=== PATIENT | female | born 1990 | race Caucasian/White ===

== ENCOUNTER 2018-10-13 19:25 | Emergency (ER) | payer MEDICAID ==
[~2018-10-13] VITALS: Ht 167.6 cm; Wt 63.5 kg
[2018-10-13] MEDS ORDERED: BUPROPION XL150 MG ORAL (19:48)
[2018-10-13 20:20] VITALS: BP 109/74
--- NOTE | 2018-10-13 20:22 | NUR ---
ED Nurse Note: pt walked in c/o pain on and bleeding on the back of the head. pt stated she fell from a stair happend 18:30 today. denies loc, denie vomiting and nausea
[2018-10-13] MEDS ORDERED: Bacitracin Oint UD TOPIC ONE ×2 (20:30→21:07)
[2018-10-13] MEDS ORDERED: HYDROcodone/Acetamin 5/325 tab ORAL ONE (20:30)
--- NOTE | 2018-10-13 20:52 | Emergency Room Report ---
History of Present Illness General Chief Complaint: Multiple Trauma/Fall Present Illness HPI 28-year-old female patient presents ER status post fall and head injury approximately less than 1 hour prior to the arrival to the ER. Reports that she was walking downstairs when she excellently tripped and fell and twisted in the air landing on the back of her head. Reports bleeding from the back of her head. Reports she does not know if she lost consciousness. Denies vomiting or vision changes. Also complaining of back and knee pain. Reports able to ambulate independently without difficulty. Denies other aggravating or relieving factors. Denies bowel or bladder incontinence. Denies pain radiating down the legs. Reports left knee tenderness to palpation. Denies syncope or dizziness prior to fall. Patient denies . Allergies: Coded Allergies: No Known Allergies (Unverified , 10/13/18) Patient History Past Medical History: see triage record Last Menstrual Period: september Now: No Reviewed Nursing Documentation: PMH: Agreed; PSxH: Agreed Nursing Documentation-PMH History Of Psychiatric Problem: Yes - depression Review of Systems All Other Systems: negative except mentioned in HPI Physical Exam Vital Signs Date Time Temp Pulse Resp B/P (MAP) Pulse Ox O2 Delivery O2 Flow Rate FiO2 10/13/18 19:44 97.9 100 16 109/74 100 Room Air Sp02 EP Interpretation: reviewed, normal General Appearance: well appearing, no apparent distress, alert, GCS 15, non- toxic Head: normocephalic, atraumatic, other - Abrasion on posterior scalp, no laceration, parietal scalp swelling, 1 cm circular, no active bleeding, negative monte sign, negative raccoon eyes, no hemotympanum bilaterally Eyes: bilateral eye normal inspection, bilateral eye PERRL, bilateral eye EOMI ENT: hearing grossly normal, normal pharynx, no angioedema, normal voice, TMs + canals normal, uvula midline, moist mucus membranes Neck: full range of motion, no bony tend Respiratory: lungs clear, normal breath sounds, no rhonchi, no respiratory distress, no accessory muscle use, no wheezing, speaking full sentences Cardiovascular #1: regular rate, rhythm, no edema Gastrointestinal: non tender, soft, no mass, non-distended, no guarding, no rebound Musculoskeletal: back normal, digits/nails normal, gait/station normal, normal range of motion, other - No laxity with varus or valgus stress of the knee, no bony step-off, No deformity, tender - Anterior right knee Neurologic: alert, oriented x3, responsive, master carpenter III-XII nml as tested, motor strength/tone normal, SLR negative, sensory intact, cerebellar normal, normal gait, speech normal Skin: abrasions - Left knee, no laceration, no active bleeding Medical Decision Making PA Attestation Dr. Layne is my supervising Physician whom patient management has been discussed with. Diagnostic Impression: Primary Impression: Fall Additional Impressions: Head injury Abrasion Back pain Knee contusion Scalp hematoma ER Course Pt presents to ED c/o mechanical trip and fall down stairs, head trauma, back pain, knee pain. Bleeding noted on posterior scalp DDX considered but are not limited to laceration, abrasion, contusion, cellulitis, ICH, skull fracture. Cranial nerves intact as tested, no focal neuro deficits. VITAL SIGNS are WNL, patient is afebrile ED INTERVENTIONS: No laceration on posterior scalp, small abrasion noted. Does not require ginger. Scalp hematoma noted, provide patient with bacitracin and compression dressing. Advised to apply ice to help with swelling symptoms. Take Motrin for pain. Abrasion noted on left knee, wound cleaned and dressed, bacitracin applied. Keep clean and dry. X-ray of the lumbar spine negative for acute disease per the preliminary reading. X-ray of the left knee negative for acute disease per the preliminary reading. Patient declined Matt wrap and crutches. Patient instructed on RICE method: rest, ice, compression, elevation. Patient instructed on rest, ice and heat. Patient instructed to be WBAT Contact information for orthopedic urgent care provided, follow-up with urgent care if unable to followup with primary care provider and get referral to graves registration specialist. Followup with primary care provider. Discuss referral to ortho/pain management/ PT as needed. Discuss further imaging with MRI/CT as needed. CT head negative for acute disease Discuss results with the patient. Provided patient with copy of results. Instructed patient to followup with PCP and discuss results of report with patient, discuss need for further treatment and referral. Monitor for signs of concussion. Follow-up with primary care provider for further evaluation and treatment. ER precautions given. DISCHARGE: At this time pt is stable for d/c to home. Patient resting comfortably, in no acute distress, nontoxic appearing, talking without difficulty. Will provide with patient care instructions and any necessary prescriptions. Patient to take medication as instructed. Care plan and follow-up instructions provided. Patient questions asked and answered. Patient reports understanding and agreement to treatment plan. Patient instructed to follow-up with primary care provider. ER precautions given. Patient instructed to return to ER immediately for any new or worsening of symptoms. - Please note that this Emergency Department Report was dictated using [employer] worker technology software, occasionally this can lead to erroneous entry secondary to interpretation by the dictation equipment. Other X-Ray Diagnostic Results Other X-Ray Diagnostic Results #1: X-Ray ordered: Lumbar spine # of Views/Limited Vs Complete: 3 View Indication: Pain EP Interpretation: Yes PA Xray: Interpretation reviewed, by supervising MD, and agrees with findings. Interpretation: no dislocation, no soft tissue swelling, no fractures Impression: No acute disease PA Scribe Text Fei Rick PA-C Other X-Ray Diagnostic Results #2: X-Ray ordered: Left knee # of Views/Limited Vs Complete: 3 View Indication: Pain EP Interpretation: Yes PA Xray: Interpretation reviewed, by supervising MD, and agrees with findings. Interpretation: no dislocation, no soft tissue swelling, no fractures Impression: No acute disease PA Scribe Text Fei Rick PA-C CT/MRI/US Diagnostic Results CT/MRI/US Diagnostic Results : Imaging Test Ordered: CT head Impression IMPRESSION: No intracranial hemorrhage or skull fracture Last Vital Signs Date Time Temp Pulse Resp B/P (MAP) Pulse Ox O2 Delivery O2 Flow Rate FiO2 10/13/18 20:20 100 16 Room Air 10/13/18 20:20 97.9 109/74 100 Status: improved Disposition: HOME, SELF-CARE Condition: Stable Scripts Ibuprofen* (MOTRIN*) 600 Mg Tablet 600 MG ORAL Q8H PRN for For Pain, #30 TAB 0 Refills Prov: Sung Rick 10/13/18 Bacitracin/Polymyxin B Sulfate (BACITRACIN-POLYMYXIN OINTMENT) 28.35 Gm Oint...g. 1 APPLIC TP BID, #28 GM Prov: Sung Rick 10/13/18 Patient Instructions: Abrasion, [id number], Back Pain, Adult, [id number], Head Injury, Adult, Ollm-[id number], Hematoma, [id number]-ts-Rlyv, Knee Pain, Easy-to- Read Additional Instructions: Patient instructed to follow up with primary care provider and discuss further referral to orthopedics/physical therapy/pain management as needed. If unable to followup with PCP, followup with orthopedic urgent care in 5-7 days , call to schedule appointment. Patient instructed on RICE method: rest, ice, compression, elevation. Patient instructed to WBAT. Keep wounds clean and dry. Take medications as directed. Patient questions asked and answered. ER precautions given, patient instructed to return to ER immediately for any new or worsening of symptoms. [facility] [address] [facility] [address] [facility], [id number] [email or web address] Follow up with primary care physician in 1 - 2 days. If you experience loss of consciousness, vision loss or intractable vomiting, return to ED immediately. Avoid screen time. Drink plenty of fluids. Avoid alcohol/drug use, rest. Sung Rick Oct 13, 2018 20:52
--- NOTE | 2018-10-13 21:13 | Diagnostic Imaging Report ---
EXAM: CT Head Without Intravenous Contrast CLINICAL HISTORY: PAIN TECHNIQUE: Axial computed tomography images of the head/brain without intravenous contrast. CTDI is 71.53 mGy and DLP is 1383 mGy-cm. One or more of the following dose reduction techniques were used: automated exposure control, adjustment of the mA and/or kV according to patient size, use of iterative reconstruction technique. COMPARISON: No relevant prior studies available. FINDINGS: Brain: Unremarkable. No hemorrhage. No significant white matter disease. No edema. Ventricles: Unremarkable. No ventriculomegaly. Bones/joints: Unremarkable. No acute fracture. Soft tissues: Mild left occipital/parietal scalp swelling. Sinuses: Unremarkable as visualized. No acute sinusitis. Mastoid air cells: Unremarkable as visualized. No mastoid effusion. IMPRESSION: No intracranial hemorrhage or skull fracture
[2018-10-13] MEDS ORDERED: BACITRACIN-P28.35 GM TP (21:25)
[2018-10-13] MEDS ORDERED: IBUPROFEN600 MG ORAL (21:25)
[2018-10-13 21:32] VITALS: BP 111/79
--- NOTE | 2018-10-13 21:32 | NUR ---
ER DISCHARGE NOTE: Patient is cleared to be discharged per ERMD, pt is aox4, on room air, with stable vital signs. pt was given dc instructions, pt was able to verbalize understanding, pt id band removed. pt is able to ambulate with steady gait. pt took all belongings.
--- NOTE | 2018-10-13 21:33 | Diagnostic Imaging Report ---
EXAM: XR Left Knee, 3 views CLINICAL HISTORY: PAIN TECHNIQUE: Three views of the left knee. COMPARISON: No relevant prior studies available. FINDINGS: Bones/joints: Unremarkable. No acute fracture. No dislocation. Soft tissues: Unremarkable. IMPRESSION: No fracture
--- NOTE | 2018-10-13 21:34 | Diagnostic Imaging Report ---
EXAM: XR Lumbar Spine, 2 or 3 Views CLINICAL HISTORY: PAIN TECHNIQUE: Frontal and lateral views of the lumbar spine. COMPARISON: No relevant prior studies available. FINDINGS: Vertebrae: Minimal thoracolumbar scoliosis convexed to the right with apex at T12-L1 No compression fracture. Normal alignment. Disc spaces: No acute findings. No significant narrowing. Soft tissues: Unremarkable. IMPRESSION: No acute findings.
== END 2018-10-13 21:32 | disposition home or self-care (01) ==
LOC: EMR 21:15
DX: S00.01XA Abrasion of scalp, initial encounter (principal); S80.02XA Contusion of left knee, initial encounter; S00.03XA Contusion of scalp, initial encounter; S80.212A Abrasion, left knee, initial encounter; W10.9XXA Fall (on) (from) unspecified stairs and steps, initial encounter; Y92.009 Unspecified place in unspecified non-institutional (private) residence as the place of occurrence of the external cause; M54.9 Dorsalgia, unspecified
CPT/HCPCS: 70450; 72020; 99284